=== PATIENT | male | born 1980 | race Caucasian/White ===

== ENCOUNTER 2022-01-26 22:49 | Emergency (ER) | payer OTHER ==
[2022-01-26 23:27] LABS: HEMOGLOBIN 15.1 gm/dl (14.0-17.5); RED BLOOD COUNT 4.62 M/UL (4.20-5.50); WHITE BLOOD COUNT 9.3 K/UL (4.5-11.0)
[2022-01-27 00:39] LABS: BUN/CREATININE RATIO 20 (0-10)
[2022-01-27] MEDS ORDERED: KEPPRA XR750 MG PO (10:21)
== END 2022-01-27 01:15 | disposition home or self-care (01) ==
LOC: ER1 22:49
DX: R56.9 Unspecified convulsions (principal); F15.10 Other stimulant abuse, uncomplicated; F17.200 Nicotine dependence, unspecified, uncomplicated
CPT/HCPCS: 80053; 85025; 93005; 99284

== ENCOUNTER 2022-01-27 09:02 | Emergency (ER) | payer OTHER ==
[2022-01-27] MEDS ORDERED: KEPPRA XR750 MG PO (10:21)
== END 2022-01-27 10:50 | disposition home or self-care (01) ==
LOC: ER1 09:02
DX: G40.909 Epilepsy, unspecified, not intractable, without status epilepticus (principal)
CPT/HCPCS: 93005; 96374; 99284; J1953

== ENCOUNTER 2022-01-27 13:59 | Emergency (ER) | payer OTHER ==
[~2022-01-27 13:59] MED LIST: KEPPRA XR750 MG PO
[2022-01-27 15:06] LABS: HEMOGLOBIN 15.2 gm/dl (14.0-17.5); RED BLOOD COUNT 4.64 M/UL (4.20-5.50); WHITE BLOOD COUNT 8.6 K/UL (4.5-11.0)
[2022-01-27 15:29] LABS: BUN/CREATININE RATIO 11 (0-10)
== END 2022-01-27 16:45 | disposition home or self-care (01) ==
LOC: ER1 13:59
PROVIDERS: Student in an Organized Health Care Education/Training Program
DX: G40.909 Epilepsy, unspecified, not intractable, without status epilepticus (principal)
CPT/HCPCS: 70450; 80053; 85025; 99284

== ENCOUNTER 2022-01-29 11:22 | Emergency (ER) | payer OTHER | END 2022-01-29 14:15 | disposition left against medical advice (07) | LOC: ER1 11:22 | DX: G40.909 Epilepsy, unspecified, not intractable, without status epilepticus (principal); R19.7 Diarrhea, unspecified; F17.210 Nicotine dependence, cigarettes, uncomplicated | CPT/HCPCS: 99282 ==